=== PATIENT | male | born 1950 | race Caucasian/White ===

== ENCOUNTER 2020-06-05 07:06 | Outpatient (CLI) | payer BC ==
[2020-06-05 16:15] LABS: Bilirubin Neg (Negative); Blood, Urine Negative (Negative); Clarity Clear (Clear); Glucose, Urine (Dipstick) Normal (Negative); Ketone, Urine Negative (Negative); Leukocyte Negative (Negative); Nitrite Negative (Negative); Protein, Urine (Dipstick) Negative (Neg-Trace); Specific Gravity, Urine 1.005 (1.002-1.036); Urobilinogen Normal mg/dL (Less than 2)
[2020-06-05 16:17] LABS: Mean Corpuscular HGB CONC 32.8 G/DL (32.0-36.0); Mean Corpuscular Volume 91.6 fl (80.0-100.0); Platelet Count 327 10x3/uL (130-400); RBC Distribution Width 12.9 % (11.5-14.5); Red Blood Cell (RBC) Count 4.66 10x6/uL (4.40-5.80)
[2020-06-05 16:28] LABS: Bacteria/HPF Rare-Few HPF (None Seen); RBC/HPF None Seen HPF (0-3); Squamous Epithelial None Seen HPF (0-3); WBC/HPF 0-3 HPF (0-3)
[2020-06-05 17:50] LABS: Anion Gap 15 mmol/L (10-20); BUN (Urea Nitrogen) 13 mg/dL (8.4-25.7); Calc. Creatinine Clearance 0 mL/min (70-130); Carbon Dioxide 27 mmol/L (23-31); Chloride 99 mmol/L (98-107); Estimated GFR-MDRD 84; Glucose 91 mg/dL (80-115); Potassium 4.7 mmol/L (3.5-5.1); Sodium 136 mmol/L (136-145)
[2020-06-06 14:37] LABS: SARS-CoV-2 MS2 Positive; SARS-CoV-2 N Gene Negative; SARS-CoV-2 S Gene Negative; SARS-CoV-2 by NAA Not Detected (NotDetected); SARS-CoV-2 orf1ab Negative
--- NOTE | 2020-06-10 06:55 | EKG ---
Test Reason : Blood Pressure : / mmHG Vent. Rate : 062 BPM Atrial Rate : 062 BPM P-R Int : 190 ms QRS Dur : 094 ms QT Int : 390 ms P-R-T Axes : 057 013 052 degrees QTc Int : 395 ms Normal sinus rhythm Normal ECG No previous ECGs available Confirmed by ANDREAS CALDERON MD ([id number]) on 06/10/2020 6:55:02 AM Referred By: JESUS Confirmed By:ANDREAS CALDERON MD
== END 2020-06-05 07:07 | disposition home or self-care (01) ==
LOC: LABBT 07:06
PROVIDERS: ATTEND Urology
DX: Z01.818 Encounter for other preprocedural examination (principal); Z20.828 Contact with and (suspected) exposure to other viral communicable diseases; N40.1 Benign prostatic hyperplasia with lower urinary tract symptoms; R97.20 Elevated prostate specific antigen [PSA]; R31.0 Gross hematuria
CPT/HCPCS: 80048; 81001; 85027; 87086; 87635; 93005; 93010; U0003

== ENCOUNTER 2020-06-10 07:47 | Observation (INO) | payer BC, MEDICARE ==
[2020-06-10] MEDS ORDERED: Levofloxacin 500 mg/D5W 100 ml Premix Bag ONE (08:29)
[2020-06-10] MEDS ORDERED: Fentanyl 100 MCG/2 ML VIAL ONE ×3 (10:19→12:11)
[2020-06-10] MEDS ORDERED: ePHEDrine 50 MG/ML VIAL ONE (10:28)
[2020-06-10] MEDS ORDERED: PROPOFOL 200 MG/20 ML VIAL ONE (10:28)
[2020-06-10] MEDS ORDERED: Ketorolac Tromethamine 30 MG/ML VIAL ONE (10:28)
[2020-06-10] MEDS ORDERED: Ondansetron PF 4 MG/2 ML Vial ONE (10:28)
[2020-06-10] MEDS ORDERED: Lidocaine 1% PF 5 ML VIAL ONE (10:28)
[2020-06-10] MEDS ORDERED: Dexamethasone 20 MG/5 ML VIAL ONE (10:28)
[2020-06-10] MEDS ORDERED: Ketorolac Tromethamine 30 MG/ML VIAL IVP PRN (12:08)
[2020-06-10] MEDS ORDERED: Hyoscyamine Sulfate SL 0.125 mg Tablet SL PRN (12:08)
[2020-06-10] MEDS ORDERED: diphenhydrAMINE 50 MG/ML VIAL IVP PRN (12:08)
[2020-06-10] MEDS ORDERED: Ondansetron PF 4 MG/2 ML Vial IVP PRN (12:08)
[2020-06-10] MEDS ORDERED: hydrALAZINE 20 MG/ML VIAL SLOW IVP PRN (12:08)
[2020-06-10] MEDS ORDERED: Zolpidem Tartrate 5 MG TAB PO PRN (12:08)
[2020-06-10] MEDS ORDERED: HYDROcodone/Acetaminophen 5/325 mg Tablet PO PRN (12:08)
[2020-06-10 16:06] VITALS: BMI 26.7
[2020-06-10] MEDS: Sodium Chloride 0.9% 1,000 ML IV SCH ×2 (16:06→17:20)
--- NOTE | 2020-06-10 17:14 | OP ---
DATE OF PROCEDURE: 06/10/2020 PREOPERATIVE DIAGNOSIS: Enlarged prostate with lower urinary tract symptoms. POSTOPERATIVE DIAGNOSIS: Enlarged prostate with lower urinary tract symptoms. PROCEDURE PERFORMED: Transurethral resection of prostate. ANESTHESIA: General. COMPLICATIONS: None. BLOOD LOSS: Minimal. SPECIMEN: Prostate chips. DESCRIPTION OF PROCEDURE: After informed consent, the patient was taken to the operating room, transferred to the table under his own power. Anesthesia was established. A time-out was performed, ensuring the correct patient, site, and procedure. Preoperative antibiotics were administered. He was prepped and draped in the lithotomy position. I began by dilating the urethral meatus and fossa navicularis from 20-Montenegrin to 28-Montenegrin. The rigid resectoscope then easily passed. There were no urethral abnormalities. The prostate was entered, noting large coapting lateral lobes and a large median lobe. The bladder was entered and systematically examined, noting no mucosal abnormalities. He does have significant trabeculation with cellules. Both ureters were normal in appearance. I began by resecting the median lobe and then posterior midline from bladder neck back to verumontanum. The left lobe was then resected from about 1 o'clock down to midline, followed by the right lobe from 11 o'clock to midline. Anterior obstructing tissue was then resected. Meticulous hemostasis was achieved. All prostate chips were evacuated with the Code71 evacuator. The bladder was then drained and the prostatic fossa reexamined, noting no persistent obstruction and no active bleeding. The bladder was examined, noting no further prostate chips. Both ureters were uninvolved with resection. The scope was then withdrawn and a 22-Montenegrin 3-way Stanley catheter placed with 30 mL instilled in the balloon. This was connected to CBI and connected to a StatLock. He was awoken from anesthesia, transferred back to his hospital bed and taken to PACU in stable condition, where he will be admitted overnight. Job ID: [id number]
[2020-06-10] MEDS: Docusate 100 MG CAP PO SCH (20:28)
[2020-06-10] MEDS ORDERED: Aspirin 81 mg Enteric Coated Tablet PO SCH (21:00)
[2020-06-11] MEDS: Sodium Chloride 0.9% 1,000 ML IV SCH ×2 (00:56→11:39)
--- NOTE | 2020-06-11 08:54 | DIS ---
DATE OF ADMISSION: 06/10/2020 DATE OF DISCHARGE: 06/11/2020 DISCHARGE DIAGNOSIS: Enlarged prostate with lower urinary tract symptoms. HOSPITAL COURSE: The patient underwent an uncomplicated bipolar transurethral resection of prostate. He was managed with CBI overnight. The following morning, CBI was turned off with urine remaining clear. He was having no discomfort, and was tolerating oral intake. He was deemed stable for discharge home at that point. DISCHARGE MEDICATIONS: He will resume all home medications except for tamsulosin. Specific postop medications include Bactrim, tramadol, oxybutynin. Follow up plan on 06/17 for void trial. Job ID: [id number]
[2020-06-11] MEDS ORDERED: FLU VACC QS2020-21(65YR UP)/PF 240 MCG/0.7 ML SYRINGE IM ONE (09:00)
[2020-06-11] MEDS: Docusate 100 MG CAP PO SCH (09:03)
[2020-06-11 11:35] VITALS: BP 163/82; TEMP 98.4
== END 2020-06-11 11:41 | disposition home or self-care (01) ==
LOC: SDC 07:47 → T4-B 15:47
PROVIDERS: ADMIT Urology; ATTEND Urology
PROC: 0VT08ZZ Resection of Prostate, Via Natural or Artificial Opening Endoscopic (ICD-10-PCS; principal; 2020-06-10)
DX: N40.1 Benign prostatic hyperplasia with lower urinary tract symptoms (principal); R39.15 Urgency of urination; R39.12 Poor urinary stream; R35.0 Frequency of micturition; R35.1 Nocturia; R31.0 Gross hematuria; Z79.82 Long term (current) use of aspirin; Z79.899 Other long term (current) drug therapy
CPT/HCPCS: 88305; G0378; J1100; J1885; J1956; J2405; J2704; J3010; J3490

== ENCOUNTER 2022-10-19 06:12 | Day surgery (SDC) | payer BC ==
[2022-10-15 16:06] VITALS: BMI 25.2
[~2022-10-19 06:12] MED LIST: EPINEPHrine 0.3 MG in Ophthalmic Irrigation Solution 500 ML IRR SCH
[2022-10-19] MEDS ORDERED: Cyclopentolate 1% Opth Drop 2 ML BOT ONE (06:48)
[2022-10-19] MEDS ORDERED: Phenylephrine 2.5% Ophth Soln 5 ML BOT ONE (06:48)
[2022-10-19] MEDS ORDERED: Midazolam HCl 2 mg/2 ml Vial ONE (07:21)
[2022-10-19] MEDS ORDERED: FENTANYL 50 MCG/ML 1 ML VIAL ONE ×2 (07:21)
[2022-10-19] MEDS ORDERED: CEFAZOLIN 1 GM VIAL ONE (07:40)
[2022-10-19] MEDS ORDERED: Triamcinolone 40 MG/ML VIAL ONE (07:40)
[2022-10-19] MEDS ORDERED: PROPOFOL 200 MG/20 ML VIAL ONE (07:40)
[2022-10-19] MEDS ORDERED: Bupivacaine 0.75% 10 ML VIAL ONE (07:40)
[2022-10-19] MEDS ORDERED: Maxitrol 0.1% Opth Oint 3.5 GM TUBE ONE (07:40)
[2022-10-19] MEDS ORDERED: Indocyanine Green 25 MG/10 ML VIAL ONE (07:40)
[2022-10-19] MEDS ORDERED: Lidocaine 1% PF 5 ML VIAL ONE (07:40)
[2022-10-19] MEDS ORDERED: Lidocaine 4% PF 5 ML AMP ONE (07:40)
== END 2022-10-19 09:00 | disposition home or self-care (01) ==
LOC: SDC 06:12
PROVIDERS: ATTEND Ophthalmology Retina Specialist
PROC: 08NE3ZZ Release Right Retina, Percutaneous Approach (ICD-10-PCS; principal; 2022-10-19)
PROC: 08T43ZZ Resection of Right Vitreous, Percutaneous Approach (ICD-10-PCS; principal; 2022-10-19)
DX: H35.371 Puckering of macula, right eye (principal); Z79.82 Long term (current) use of aspirin; Z79.899 Other long term (current) drug therapy
CPT/HCPCS: J0171; J0690; J2250; J2704; J3010; J3301; J3490